=== PATIENT | male | born 2000 | race Hispanic/Latino ===

== ENCOUNTER 2020-03-22 10:59 | Emergency (ER) | payer OTHER ==
[~2020-03-22] VITALS: Ht 170.2 cm; Wt 56.7 kg
--- NOTE | 2020-03-22 11:00 | NUR ---
PATIENT ABBULATORY TO ROOM 5 C/C RIGHT MIDDLE FINGER LACERATION ACTIVELY BLEED. PT STATES HE WAS AT WORK WHEN HIS RIGHT HAND BECAME ENTANGLED IN A CHAIN,. PT RIGHT HAND IS SWOLLEN MIDDLE FINGER BLEEDING DR. GALLARDO AT BEDSIDE TO SUTURE.
[2020-03-22] MEDS ORDERED: LIDOCAINE 1% VIAL ONE (11:05)
[2020-03-22 11:11] VITALS: BP 128/109
--- NOTE | 2020-03-22 11:21 | NUR ---
AT BEDSIDE FINISHED SUTURING FINGER 6 SUTURES
[2020-03-22] MEDS: ADACEL VIAL IM ONE (11:30)
[2020-03-22] MEDS: MOTRIN PO STA (11:31)
[2020-03-22] MEDS ORDERED: ADACEL VIAL IM ONE (11:35)
--- NOTE | 2020-03-22 11:35 | ER.PDOC ---
General Chief Complaint: Extremities Stated Complaint: HAND INJURY Time seen by MD: 11:29 Source: patient Exam Limitations: no limitations History of Present Illness Initial Comments Laceration right middle finger. Hand was caught between metals. Occurred: this morning Where: work Severity: moderate Context: direct blow, laceration Location of Injury: (R) fingers (3rd) Past Medical History Medical History: no pertinent history Surgical History: no surgical history Family History Significant Family History: no pertinent family hx Social History Alcohol Use: none Drug Use: none Review of Systems Constitutional: no symptoms reported EENTM: no symptoms reported Respiratory: no symptoms reported Cardiovascular: no symptoms reported Gastrointestinal: no symptoms reported Musculoskeletal: see HPI All Other Systems: Reviewed and Negative Physical Exam General Appearance: Alert, No Apparent Distress Hand: no evidence FB, see diagram, tenderness (with laceration right middle finger) Wrist: nml inspection, non-tender, nml ROM 1 - Lac lateral right middle finger Neuro: sensation nml, motor nml Vascular: no vascular compromise Tendons: tendon function nml Forearm/Elbow/Arm: uninjured above wrist Head/ENT: nml inspection, pharynx nml Neck/Back: nml inspection, non-tender Resp/CVS: no resp distress, lungs clear, heart sounds nml, reg. rate & rhythm Abdomen: non-tender, no organomegaly ED LACERATION WOUND REPAIR # of Wounds/Lacerations Presen: 1 Wound Location & Length (Requi: Right hand Wound Length (cm): 4 Wound cleaned: betadine Anesthesia: 1% Lidocaine Volume Anesthetic (ccs): 10 Wound's Depth, Shape: irregular Irrigated w/ Saline (ccs): 40 Wound Debrided: minimal Wound Repaired With: sutures Suture Size/Type: 4:0, ethilon Suture Style: interupted Number of Sutures: 6 Sterile Dressing Applied?: Yes Results/Orders Results/Orders Orders - AMIE GALLARDO MD Lidocaine Hcl (Lidocaine 1% Vial) (03/22/20 11:05) Xr Hand Rt (03/22/20 11:26) Ibuprofen (Motrin) (03/22/20 11:26) Diph,Pertuss(Acell),Tet Vac/Pf (Adacel V (03/22/20 11:30) Diph,Pertuss(Acell),Tet Vac/Pf (Adacel V (03/22/20 11:35) Vital Signs Date Time Temp Pulse Resp B/P (MAP) Pulse Ox O2 Delivery O2 Flow Rate FiO2 03/22/20 11:18 97.9 110 20 99 03/22/20 11:11 97.9 110 20 99 03/22/20 11:11 97.9 110 20 99 Administered Medications Medications (Trade) Dose Ordered Sig/Norma Route PRN Reason Start Time Stop Time Status Last Admin Dose Admin Diphtheria/ Tetanus/Acell Pertussis (Adacel Vial) 0.5 ml ONCE ONCE IM 03/22/20 11:30 03/22/20 11:31 DC 03/22/20 11:30 0.5 ML Ibuprofen (Motrin) 600 mg STAT STAT PO 03/22/20 11:26 03/22/20 11:28 DC 03/22/20 11:31 600 MG EKG/XRAY/CT/US XRAY: hand (No acute bony abnormality of right hand) ER DEPART Departure Time of Disposition: 11:39 Disposition: 01 HOME, SELF-CARE Impression: Primary Impression: Laceration of hand Additional Impression: Contusion of hand, right Condition: Stable Referrals: PCP,UNKNOWN (PCP) PRIMARY CARE PROVIDER Additional Instructions: Keflex Apply Neosporin daily Ibuprofen Remove sutures in 8 days at your PCP or ED. Duration or Time Spent with Pa: 20 min Problem Qualifiers Primary Impression: Laceration of hand Encounter type: initial encounter Foreign body presence: without foreign body Laterality: right Qualified Codes: S61.411A - Laceration without foreign body of right hand, initial encounter Additional Impression: Contusion of hand, right Encounter type: initial encounter Qualified Codes: S60.221A - Contusion of right hand, initial encounter AMIE GALLARDO MD Mar 22, 2020 11:35
[2020-03-22] MEDS ORDERED: MOTRIN ONE (11:36)
--- NOTE | 2020-03-22 12:02 | DIREP ---
PROCEDURE:XRAY HAND MIN 3 VW-RT COMPARISON:None. INDICATIONS:Pain S/P injury FINDINGS: BONES:Normal. JOINTS:Normal. SOFT TISSUES:There is a 6 mm long linear density overlying the soft tissues, anterior aspect of the 3rd proximal phalanx. This is only seen on the oblique view. OTHER:No additional findings. CONCLUSION: 1. Linear artifact versus small linear opaque metal fragment in the soft tissues, anterior aspect of the right 3rd proximal phalanx. Recommend correlation as to whether a penetrating injury with foreign body is response for the patient's presenting symptoms. 2. No evidence of bony injury in the right hand. Dictated by: Ben Herring M.D. on 03/22/2020 at 11:58 AM
== END 2020-03-22 11:45 | disposition home or self-care (01) ==
LOC: ER 10:59
DX: S61.212A Laceration without foreign body of right middle finger without damage to nail, initial encounter (principal); S60.221A Contusion of right hand, initial encounter; Z79.1 Long term (current) use of non-steroidal anti-inflammatories (NSAID); W23.0XXA Caught, crushed, jammed, or pinched between moving objects, initial encounter; Y93.89 Activity, other specified; Y92.89 Other specified places as the place of occurrence of the external cause; Y99.0 Civilian activity done for income or pay
CPT/HCPCS: 12002; 73130; 90471; 90715; 99283; J2001